=== PATIENT | male | born 1995 | race Caucasian/White ===

== ENCOUNTER 2021-05-23 10:55 | Emergency (ER) | payer OTHER ==
--- NOTE | 2021-05-23 13:58 | ED ---
General Adult HPI <Alex Cárdenas - Last Filed: 05/23/21 22:02> - General Source: patient, family, RN notes reviewed Mode of arrival: ambulatory Limitations: no limitations <Ab Murphy - Last Filed: 05/25/21 11:57> - General Chief complaint: Psychiatric Symptoms Stated complaint: mental health Time Seen by Provider: 05/23/21 13:11 - History of Present Illness Initial comments: 25-year-old male presents to the emergency room for a chief complaint of suicidal thoughts. Patient reports that he has had suicidal thoughts for the past 4 months. States that that is when he started to have high anxiety in his life and panic attacks. Patient's parents state that over the past several days he has not been acting his normal self. Patient recently broke up with his fiance of 3 years yesterday. It his fianc had given a letter to his parents describing his behavior. States he is not sleeping and is talking without making big money scans. States he is thinking is "very happy." Patient was driven home from work from [place] today because he was also to be there and was acting erratic. Patient is concerned he has bipolar disorder.Patient has no other complaints at this time including shortness of breath, chest pain, abdominal pain, nausea or vomiting, headache, or visual changes. (Ab Murphy) - Related Data Home Medications Medication Instructions Recorded Confirmed FLUoxetine HCL [PROzac] 20 mg PO DAILY 05/23/21 05/23/21 QUEtiapine [SEROquel] 50 mg PO HS 05/23/21 05/23/21 busPIRone HCl [Buspar] 5 mg PO BID 05/23/21 05/23/21 Allergies Allergy/AdvReac Type Severity Reaction Status Date / Time No Known Allergies Allergy Verified 05/23/21 16:06 Review of Systems ROS Other: All systems not noted in ROS Statement are negative. <Alex Cárdenas - Last Filed: 05/23/21 22:02> ROS Other: All systems not noted in ROS Statement are negative. <Ab Muprhy - Last Filed: 05/25/21 11:57> ROS Statement: Those systems with pertinent positive or pertinent negative responses have been documented in the HPI. Past Medical History Past Medical History: No Reported History History of Any Multi-Drug Resistant Organisms: None Reported Past Surgical History: No Surgical Hx Reported Past Psychological History: Anxiety Smoking Status: Current every day smoker Past Alcohol Use History: None Reported Past Drug Use History: None Reported <Ab Murphy P - Last Filed: 05/25/21 11:57> General Exam Limitations: no limitations General appearance: alert, in no apparent distress Head exam: Present: atraumatic Eye exam: Present: normal appearance, PERRL, EOMI. Absent: scleral icterus, conjunctival injection ENT exam: Present: normal exam, mucous membranes moist Neck exam: Present: normal inspection, full ROM. Absent: tenderness Respiratory exam: Present: normal lung sounds bilaterally. Absent: respiratory distress, wheezes Cardiovascular Exam: Present: regular rate, normal rhythm, normal heart sounds GI/Abdominal exam: Present: soft, normal bowel sounds. Absent: distended, tenderness Neurological exam: Present: alert <Ab Murphy P - Last Filed: 05/25/21 11:57> Course Vital Signs 05/23/21 05/23/21 05/23/21 13:04 13:08 14:08 Temperature 98.3 F Pulse Rate 74 Respiratory 18 18 18 Rate Blood Pressure 129/83 O2 Sat by Pulse 100 Oximetry 05/23/21 05/23/21 05/23/21 15:08 16:08 17:00 Temperature Pulse Rate Respiratory 18 18 18 Rate Blood Pressure O2 Sat by Pulse Oximetry 05/23/21 05/23/21 05/23/21 18:00 19:00 20:00 Temperature Pulse Rate Respiratory 18 18 18 Rate Blood Pressure O2 Sat by Pulse Oximetry 05/23/21 05/23/21 05/23/21 20:58 22:00 23:00 Temperature Pulse Rate Respiratory 18 18 18 Rate Blood Pressure O2 Sat by Pulse Oximetry 05/24/21 05/24/21 05/24/21 00:00 01:00 02:00 Temperature Pulse Rate 68 Respiratory 18 18 18 Rate Blood Pressure 112/58 O2 Sat by Pulse 97 Oximetry 05/24/21 05/24/21 05/24/21 03:00 04:00 05:00 Temperature Pulse Rate Respiratory 18 18 18 Rate Blood Pressure O2 Sat by Pulse Oximetry 05/24/21 05/24/21 05/24/21 06:00 15:03 21:49 Temperature 97.3 F L 98.0 F 97.9 F Pulse Rate 62 67 100 Respiratory 18 18 18 Rate Blood Pressure 119/66 104/65 143/78 O2 Sat by Pulse 99 98 97 Oximetry 05/25/21 05/25/21 07:00 08:12 Temperature 98.2 F Pulse Rate 84 Respiratory 18 19 Rate Blood Pressure 110/64 O2 Sat by Pulse 96 Oximetry Medical Decision Making - Lab Data Result diagrams: 05/23/21 16:53 05/23/21 16:53 <Alex Cárdenas - Last Filed: 05/23/21 22:02> - Lab Data Result diagrams: 05/23/21 16:53 05/23/21 16:53 <Ab Murphy - Last Filed: 05/25/21 11:57> - Medical Decision Making Patient was signed out to me pending psychiatric evaluation and clearance. Patient is already medically cleared by the mid-level provider. Patient is awaiting psych transfer. [facility] Dr. Justin. (Alex Cárdenas) Vitals are stable. Patient is well appearing. Patient is at times tearful. Patient to be evaluated by EPS. (Ab Murphy) - Lab Data Lab Results 05/23/21 05/23/21 05/23/21 Range/Units 15:00 15:00 16:53 WBC 10.9 H (3.8-10.6) k/uL RBC 5.40 (4.30-5.90) m/uL Hgb 17.0 (13.0-17.5) gm/dL Hct 49.2 (39.0-53.0) % MCV 91.2 (80.0-100.0) fL MCH 31.5 (25.0-35.0) pg MCHC 34.5 (31.0-37.0) g/dL RDW 12.9 (11.5-15.5) % Plt Count 248 (150-450) k/uL MPV 7.7 Neutrophils % 77 % Lymphocytes % 15 % Monocytes % 5 % Eosinophils % 1 % Basophils % 1 % Neutrophils # 8.3 H (1.3-7.7) k/uL Lymphocytes # 1.7 (1.0-4.8) k/uL Monocytes # 0.6 (0-1.0) k/uL Eosinophils # 0.1 (0-0.7) k/uL Basophils # 0.1 (0-0.2) k/uL Sodium (137-145) mmol/L Potassium (3.5-5.1) mmol/L Chloride (98-107) mmol/L Carbon Dioxide (22-30) mmol/L Anion Gap mmol/L BUN (9-20) mg/dL Creatinine (0.66-1.25) mg/dL Est GFR (CKD-EPI)AfAm (>60 ml/min/1.73 sqM) Est GFR (CKD-EPI)NonAf (>60 ml/min/1.73 sqM) Glucose (74-99) mg/dL Calcium (8.4-10.2) mg/dL Total Bilirubin (0.2-1.3) mg/dL AST (17-59) U/L ALT (4-49) U/L Alkaline Phosphatase (38-126) U/L Total Protein (6.3-8.2) g/dL Albumin (3.5-5.0) g/dL Urine Color Colorless Urine Appearance Clear (Clear) Urine pH 7.0 (5.0-8.0) Ur Specific [place] 1.002 (1.001-1.035) Urine Protein Negative (Negative) Urine Glucose (UA) Negative (Negative) Urine Ketones Negative (Negative) Urine Blood Negative (Negative) Urine Nitrite Negative (Negative) Urine Bilirubin Negative (Negative) Urine Urobilinogen <2.0 (<2.0) mg/dL Ur Leukocyte Esterase Negative (Negative) Urine Opiates Screen Not Detected (NotDetected) Ur Oxycodone Screen Not Detected (NotDetected) Urine Methadone Screen Not Detected (NotDetected) Ur Propoxyphene Screen Not Detected (NotDetected) Ur Barbiturates Screen Not Detected (NotDetected) U Tricyclic Antidepress Not Detected (NotDetected) Ur Phencyclidine Scrn Not Detected (NotDetected) Ur Amphetamines Screen Not Detected (NotDetected) U Methamphetamines Scrn Not Detected (NotDetected) U Benzodiazepines Scrn Not Detected (NotDetected) Urine Cocaine Screen Not Detected (NotDetected) U Marijuana (THC) Screen Detected H (NotDetected) Coronavirus (PCR) (Not Detectd) 05/23/21 05/23/21 Range/Units 16:53 16:53 WBC (3.8-10.6) k/uL RBC (4.30-5.90) m/uL Hgb (13.0-17.5) gm/dL Hct (39.0-53.0) % MCV (80.0-100.0) fL MCH (25.0-35.0) pg MCHC (31.0-37.0) g/dL RDW (11.5-15.5) % Plt Count (150-450) k/uL MPV Neutrophils % % Lymphocytes % % Monocytes % % Eosinophils % % Basophils % % Neutrophils # (1.3-7.7) k/uL Lymphocytes # (1.0-4.8) k/uL Monocytes # (0-1.0) k/uL Eosinophils # (0-0.7) k/uL Basophils # (0-0.2) k/uL Sodium 140 (137-145) mmol/L Potassium 4.0 (3.5-5.1) mmol/L Chloride 105 (98-107) mmol/L Carbon Dioxide 24 (22-30) mmol/L Anion Gap 11 mmol/L BUN 7 L (9-20) mg/dL Creatinine 0.91 (0.66-1.25) mg/dL Est GFR (CKD-EPI)AfAm >90 (>60 ml/min/1.73 sqM) Est GFR (CKD-EPI)NonAf >90 (>60 ml/min/1.73 sqM) Glucose 147 H (74-99) mg/dL Calcium 10.0 (8.4-10.2) mg/dL Total Bilirubin 0.6 (0.2-1.3) mg/dL AST 37 (17-59) U/L ALT 44 (4-49) U/L Alkaline Phosphatase 93 (38-126) U/L Total Protein 8.3 H (6.3-8.2) g/dL Albumin 4.9 (3.5-5.0) g/dL Urine Color Urine Appearance (Clear) Urine pH (5.0-8.0) Ur Specific [place] (1.001-1.035) Urine Protein (Negative) Urine Glucose (UA) (Negative) Urine Ketones (Negative) Urine Blood (Negative) Urine Nitrite (Negative) Urine Bilirubin (Negative) Urine Urobilinogen (<2.0) mg/dL Ur Leukocyte Esterase (Negative) Urine Opiates Screen (NotDetected) Ur Oxycodone Screen (NotDetected) Urine Methadone Screen (NotDetected) Ur Propoxyphene Screen (NotDetected) Ur Barbiturates Screen (NotDetected) U Tricyclic Antidepress (NotDetected) Ur Phencyclidine Scrn (NotDetected) Ur Amphetamines Screen (NotDetected) U Methamphetamines Scrn (NotDetected) U Benzodiazepines Scrn (NotDetected) Urine Cocaine Screen (NotDetected) U Marijuana (THC) Screen (NotDetected) Coronavirus (PCR) Not Detected (Not Detectd) Disposition <Alex Cárdenas - Last Filed: 05/23/21 22:02> <Ab Murphy - Last Filed: 05/25/21 11:57> Clinical Impression: Encounter for psychiatric assessment Disposition: TRANSFER TO PSYCH HOSP/UNIT Referrals: None,Stated [REFERRING] - 1-2 days
[2021-05-23 15:37] LABS: Amphetamine Screen,Urine Not Detected (NotDetected); Barbiturate Screen,Urine Not Detected (NotDetected); Benzodiazepines Screen,Urine Not Detected (NotDetected); Cocaine Screen,Urine Not Detected (NotDetected); Methadone Screen, Urine Not Detected (NotDetected); Opiate Screen,Urine Not Detected (NotDetected); Oxycodone Screen, Urine Not Detected (NotDetected); Phencyclidine Screen,Urine Not Detected (NotDetected); Tricyclic Antidepressant,Urine Not Detected (NotDetected); Urn Cannabinoid Scrn Detected (NotDetected)
[2021-05-23] MEDS ORDERED: NICOTINE 21MG/24HR PATCH TRANSDERM STA (16:38)
[2021-05-23 16:52] LABS: Appearance,Urine Clear (Clear); Bilirubin,Urine Negative (Negative); Blood,Urine Negative (Negative); Color,Urine Colorless; Glucose,Urine (UA) Negative (Negative); Ketones,Urine Negative (Negative); Leukocyte Esterase,Urine Negative (Negative); Nitrite,Urine Negative (Negative); Protein,Urine Negative (Negative); Specific Gravity,Urine 1.002 (1.001-1.035); Urobilinogen,Urine <2.0 mg/dL (<2.0)
[2021-05-23 16:58] LABS: Basophils # (A) 0.1 k/uL (0-0.2); Basophils % (A) 1 %; Eosinophils # (A) 0.1 k/uL (0-0.7); Eosinophils % (A) 1 %; HCT 49.2 % (39.0-53.0); Lymphocytes # (A) 1.7 k/uL (1.0-4.8); Lymphocytes % (A) 15 %; MCH 31.5 pg (25.0-35.0); MCHC 34.5 g/dL (31.0-37.0); MCV 91.2 fL (80.0-100.0); Mean Platelet Volume 7.7; Monocytes # (A) 0.6 k/uL (0-1.0); Monocytes % (A) 5 %; Neutrophils # (A) 8.3 k/uL (1.3-7.7); Neutrophils % (A) 77 %; Platelet Count 248 k/uL (150-450); RDW 12.9 % (11.5-15.5); WBC 10.9 k/uL (3.8-10.6)
[2021-05-23 17:05] LABS: AST 37 U/L (17-59); African American GFR (CKD) >90 (>60 ml/min/1.73 sqM); Albumin 4.9 g/dL (3.5-5.0); Alkaline Phosphatase 93 U/L (38-126); Anion Gap 11 mmol/L; Blood Urea Nitrogen 7 mg/dL (9-20); Carbon Dioxide 24 mmol/L (22-30); Chloride 105 mmol/L (98-107); Glucose 147 mg/dL (74-99); Non-African American GFR(CKD) >90 (>60 ml/min/1.73 sqM); Sodium 140 mmol/L (137-145); Total Bilirubin 0.6 mg/dL (0.2-1.3); Total Protein 8.3 g/dL (6.3-8.2)
[2021-05-23 17:06] LABS: ALT 44 U/L (4-49)
[2021-05-23] MEDS: MELATONIN 5 MG TABLET PO SCH (21:08)
[2021-05-23] MEDS ORDERED: LORazepam 1 MG TAB PO STA (22:43)
[2021-05-24] MEDS ORDERED: ZIPRASIDONE 20 MG VIAL IM STA (00:57)
[2021-05-24] MEDS ORDERED: LORazepam 1 MG TAB PO STA ×3 (09:31→18:31)
[2021-05-24] MEDS: NICOTINE 21MG/24HR PATCH TRANSDERM SCH (17:02)
[2021-05-24] MEDS: busPIRone HCl 5 MG TAB PO SCH (21:01)
[2021-05-24] MEDS: QUEtiapine 50 MG TAB PO SCH ×2 (21:01→21:02)
[2021-05-24] MEDS: MELATONIN 5 MG TABLET PO SCH (21:02)
[2021-05-24] MEDS ORDERED: IBUPROFEN 600 MG TAB PO STA (21:40)
[2021-05-25] MEDS ORDERED: LORazepam 1 MG TAB PO STA ×2 (01:52→14:23)
[2021-05-25] MEDS ORDERED: FLUoxetine HCL 20 MG CAP PO SCH (09:00)
[2021-05-25] MEDS: NICOTINE 21MG/24HR PATCH TRANSDERM SCH (11:29)
[2021-05-25] MEDS: busPIRone HCl 5 MG TAB PO SCH (12:05)
[2021-05-25 18:28] VITALS: BP 122/70; PULSE 79; RESP 16; TEMP 97.9
== END 2021-05-25 18:28 ==
LOC: EC 10:55
DX: Z13.89 Encounter for screening for other disorder (principal); F17.200 Nicotine dependence, unspecified, uncomplicated; Z20.822 Contact with and (suspected) exposure to COVID-19
CPT/HCPCS: 82075; 36415; 80053; 85025; 81003; 80306; 87635; 99284; 96372; S4990 ×2; J3486